=== PATIENT | male | born 1995 | race Caucasian/White ===

== ENCOUNTER 2019-05-12 12:02 | Emergency (ER) | payer SELFPAY ==
[~2019-05-12] VITALS: Wt 78.0 kg
[2019-05-12 12:07] VITALS: BP 134/76; PULSE 96; RESP 18
== END 2019-05-12 13:13 | disposition left against medical advice (07) ==
LOC: FTE 12:02
DX: Z53.21 Procedure and treatment not carried out due to patient leaving prior to being seen by health care provider (principal)